=== PATIENT | female | born 1940 ===

== ENCOUNTER 2019-02-27 04:49 | Day surgery (SDC) | payer OTHER ==
[~2019-02-27 04:49] MED LIST: ARICEPT5 MG PO; ATIVAN0.5 MG PO; ATIVAN1 M1 PO; ATORVASTATIN CA40 MG PO; CLOPIDOGREL BIS75 MG PO; ENULOSE10 GM/15 M PO; FAMOTIDINE40 MG PO; FORTAMET1000 MG PO; GLIPIZIDE ER10 MG PO; MULTIVITAMINS1 EAC4 PO; TOPROL XL25 M1 PO; TRADJENTA5 MG PO; [UNRECOGNIZED DRUG - OTHER] PO
[2019-02-27] MEDS ORDERED: CIPROFLOXACIN250 MG PO (09:14)
[2019-02-27] MEDS ORDERED: ULTRACET PO (09:14)
== END 2019-02-27 14:20 | disposition home or self-care (01) ==
LOC: CIR.AMB 04:49
DX: N81.6 Rectocele (principal); N81.11 Cystocele, midline; N81.5 Vaginal enterocele